=== PATIENT | male | born 1980 | race Caucasian/White ===

== ENCOUNTER 2017-08-02 08:47 | Emergency (ER) | payer OTHER, SELFPAY ==
[2017-08-02 09:06] VITALS: BP 141/80; PULSE 90; RESP 18; TEMP 37.4; O2SAT 97; BMI 25.0
--- NOTE | 2017-08-02 09:19 | HMH.EDUTC ---
[facility] [place]: Influenza A Disposition: Home, Self-Care Condition on Discharge: Good Instructions: DI for Influenza -- Adult Additional Instructions: * Lots of rest * Increase fluids, water, gatorade, powerade, pedialyte if /toddler/child * Monitor Temp. Tylenol every 4 hours as needed no more then 5 times a day or 4000mg in 24 hours and/or ibuprofen every 6 hours as needed no more then 3200mg in 24 hours (as long as your primary care doctor has told you that it is ok to take both) for fever/aches/pain. ER if fever no less than 101 despite tylenol and Ibuprofen * You (or your child) are contagious until no fever, aches, chills x 24 hours without medication for symptoms. * Discussed tamiflu, patient opted out of tamiflu because otherwise healthy Follow up IMMEDIATELY for new or worsening symptoms, improvement followed by suddenly feeling worse OR no noticeable improvement over the next 48-72 hours. 911 for difficulty breathing Referrals: Evan Thomas MD [Primary Care Provider] - Forms: Work/School Release Time of Disposition: 09:33 Medical Decision Making Vital Signs: 08/02/17 09:06 Temperature 99.3 F Temperature Source Temporal Artery Scan Pulse Rate [Right] 90 Respiratory Rate 18 Blood Pressure [Right Arm] 141/80 Blood Pressure Mean [Right Arm] 100 Blood Pressure Source [Right Arm] Automatic Cuff Blood Pressure Position [Right Arm] Sitting 02 Sat by Pulse Oximetry 97 Oxygen Delivery Method Room Air - Lab Data Lab Results 08/02/17 09:18: Influenza Type A Ag Positive A, Influenza Type B Ag Negative - Ankur Inquiry Pt receiving controlled substance: No [facility] [place] - General Chief complaint: Fever Stated complaint: Fever Cough Body Aches Time Seen by Provider: 08/02/17 09:10 Mode of Arrival: Ambulatory Source of Information: Patient Limitations: No Limitations Description of Symptoms (Recalled from Triage Doc. by RN): fever, cough 3 days HEENT Symptoms (Recalled from RN notes): Yes Resp Symptoms (Recalled from RN notes): No Skin Symptoms (Recalled from RN notes): No MS Symptoms (Recalled from RN notes): No Functional Status (Recalled from RN notes): N - History of Present Illness Provider Complaint: c/o subjective fever, bodyaches, chills, nonprod cough, nasal drainage since day before yesterday. No known sick contacts. Has not had flu vaccine. Nyquil last night didn't help. Denies SOA, wheezing. - Related Data Allergies Allergy/AdvReac Type Severity Reaction Status Date / Time No Known Allergies Allergy Unverified 07/17/17 14:50 - Worker's Comp Is this a Worker's Comp case?: No [facility] History I have reviewed the patient's past medical history: Yes (rvwd w/ pt) - *Social History Smoking Status: Current every day smoker Tobacco Type: cigarettes Alcohol Intake: never - Psychiatric History Expresses thoughts of harming self/others: None Suicide Plan Description: No Plan ROS Obtained: Yes Systems reviewed as appropropriate & no additional complaint - Constitutional Reports body ache(s), Reports chills, Reports fatigue - Eyes Denies discharge - ENT Reports nasal congestion, Reports nasal discharge, Reports post nasal drip, Reports sore throat (primarily in morning), Denies ear discharge, Denies ear pain - Cardiovascular Denies chest pain - Respiratory Reports cough, Denies shortness of breath, Denies wheezing - Gastrointestinal Denies change in stools, Denies vomiting - Musculoskeletal Reports joint pain - Neurologic Reports headache(s) (mild, intermittent), Denies dizziness Physical Exam - General General appearance: alert, in no apparent distress - Eye Eye exam: Present: normal appearance - ENT ENT exam: Present: normal oropharynx, mucous membranes moist, TM's normal bilaterally, normal external ear exam, other (clear nasal drainage) - Neck Neck exam: Absent: lymphadenopathy - Chest Chest inspection
--- NOTE | 2017-08-02 09:23 | ED_ITS ---
[facility] [place] Impression: Influenza A Disposition: Home, Self-Care Condition on Discharge: Good Instructions: DI for Influenza -- Adult Additional Instructions: * Lots of rest * Increase fluids, water, gatorade, powerade, pedialyte if /toddler/child * Monitor Temp. Tylenol every 4 hours as needed no more then 5 times a day or 4000mg in 24 hours and/or ibuprofen every 6 hours as needed no more then 3200mg in 24 hours (as long as your primary care doctor has told you that it is ok to take both) for fever/aches/pain. ER if fever no less than 101 despite tylenol and Ibuprofen * You (or your child) are contagious until no fever, aches, chills x 24 hours without medication for symptoms. * Discussed tamiflu, patient opted out of tamiflu because otherwise healthy Follow up IMMEDIATELY for new or worsening symptoms, improvement followed by suddenly feeling worse OR no noticeable improvement over the next 48-72 hours. 911 for difficulty breathing Referrals: Evan Thomas MD [Primary Care Provider] - Forms: Work/School Release Time of Disposition: 09:33 Medical Decision Making Vital Signs: 08/02/17 09:06 Temperature 99.3 F Temperature Source Temporal Artery Scan Pulse Rate [Right] 90 Respiratory Rate 18 Blood Pressure [Right Arm] 141/80 Blood Pressure Mean [Right Arm] 100 Blood Pressure Source [Right Arm] Automatic Cuff Blood Pressure Position [Right Arm] Sitting 02 Sat by Pulse Oximetry 97 Oxygen Delivery Method Room Air - Lab Data Lab Results 08/02/17 09:18: Influenza Type A Ag Positive A, Influenza Type B Ag Negative - Ankur Inquiry Pt receiving controlled substance: No [facility] [place] - General Chief complaint: Fever Stated complaint: Fever Cough Body Aches Time Seen by Provider: 08/02/17 09:10 Mode of Arrival: Ambulatory Source of Information: Patient Limitations: No Limitations Description of Symptoms (Recalled from Triage Doc. by RN): fever, cough 3 days HEENT Symptoms (Recalled from RN notes): Yes Resp Symptoms (Recalled from RN notes): No Skin Symptoms (Recalled from RN notes): No MS Symptoms (Recalled from RN notes): No Functional Status (Recalled from RN notes): N - History of Present Illness Provider Complaint: c/o subjective fever, bodyaches, chills, nonprod cough, nasal drainage since day before yesterday. No known sick contacts. Has not had flu vaccine. Nyquil last night didn't help. Denies SOA, wheezing. - Related Data Allergies Allergy/AdvReac Type Severity Reaction Status Date / Time No Known Allergies Allergy Unverified 07/17/17 14:50 - Worker's Comp Is this a Worker's Comp case?: No [facility] History I have reviewed the patient's past medical history: Yes (rvwd w/ pt) - *Social History Smoking Status: Current every day smoker Tobacco Type: cigarettes Alcohol Intake: never - Psychiatric History Expresses thoughts of harming self/others: None Suicide Plan Description: No Plan ROS Obtained: Yes Systems reviewed as appropropriate & no additional complaint - Constitutional Reports body ache(s), Reports chills, Reports fatigue - Eyes Denies discharge - ENT Reports nasal congestion, Reports nasal discharge, Reports post nasal drip, Reports sore throat (primarily in morning), Denies ear discharge, Denies ear pain - Cardiovascular Denies chest pain - Respiratory Reports coug
[2017-08-02 09:25] LABS: UTC Influenza A Antigen Positive (Negative); UTC Influenza B Antigen Negative (Negative)
== END 2017-08-02 09:44 | disposition home or self-care (01) ==
PROVIDERS: Emergency Provider Nurse Practitioner Family; Family Provider Family Medicine; PCP Family Medicine
DX: J10.1 Influenza due to other identified influenza virus with other respiratory manifestations (principal)
CPT/HCPCS: 87276; 87804; 99202

== ENCOUNTER → 2017-12-10 10:52 | Outpatient (CLI) | payer OTHER, SELFPAY ==
--- NOTE | 2017-12-10 11:02 | US_ITS ---
US abdomen limited: HISTORY: Right upper quadrant pain ITS.REASON: GALLSTONES,ABD PAIN ORDERING PHYSICIAN: Latoya Hicks PATIENT AGE: 37 years COMPARISON: 12/09/2017 FINDINGS: PANCREAS: Unremarkable. No obvious mass or abnormal fluid collection. No ductal dilatation LIVER: No focal liver lesions demonstrated. Homogeneous echogenicity. No intrahepatic biliary ductal dilatation evident RIGHT KIDNEY: Unremarkable. Normal size and echogenicity. No hydronephrosis GALLBLADDER: Stones are present in the gallbladder. There is a small area of increased echogenicity in the region of the neck of the gallbladder with posterior acoustical shadowing suggesting a stone within the neck of the gallbladder. No pericholecystic fluid, biliary dilatation, or gallbladder wall thickening evident. Small amount sludge is present in the gallbladder. IMPRESSION: Cholelithiasis with suggestion of a stone in the neck of the gallbladder.
== END ==
PROVIDERS: PCP Family Medicine; Visit Provider Nurse Practitioner Family
DX: R10.11 Right upper quadrant pain (principal)
CPT/HCPCS: 76705

== ENCOUNTER → 2017-12-14 11:46 | Outpatient (CLI) | payer OTHER, SELFPAY ==
[2017-12-14 12:07] LABS: Basophils # 0.1 K/mm3 (0-0.2); Basophils % 0.4 % (0.1-2.0); Eosinophils # 0.1 K/mm3 (0.0-0.4); Hemoglobin 17.2 g/dL (14.1-18.0); Lymphocytes # 2.1 K/mm3 (0.7-4.5); Lymphocytes % 18.9 K/mm3 (10-50); Mean Corpuscular HGB Conc 35.2 g/dL (31.8-35.4); Mean Corpuscular Hemoglobin 32.3 pg (27.0-31.2); Mean Corpuscular Volume 91.8 fl (80-94); Mean Platelet Volume 9.2 fl (7.4-10.4); Monocytes # 0.7 K/mm3 (0.1-1.0); Monocytes % 6.3 % (1.7-9.3); Neutrophils % 73.3 % (37.0-80.0); Platelet Count 189 K/mm3 (142-424); Red Blood Count 5.33 M/mm3 (4.60-6.20); Red Cell Distribution Width 12.4 % (11.5-17.5); White Blood Count 10.9 K/mm3 (4.8-10.8)
[2017-12-14 13:27] LABS: Alanine Aminotransferase 21 U/L (12-78); Albumin Level 4.2 gm/dL (3.4-5.0); Albumin/Globulin Ratio 1.3 (1.1-1.8); Alkaline Phosphatase 125 U/L (46-116); Anion Gap 12.1 mEq/L (5-15); Aspartate Amino Transferase 18 U/L (15-37); Blood Urea Nitrogen 8 mg/dL (7-18); Calcium 9.4 mg/dL (8.5-10.1); Carbon Dioxide 31 mmol/L (21.0-32.0); Chloride 101 mmol/L (98-107); Creatinine,Serum 1.01 mg/dL (0.70-1.30); Estimated Glomerular Filt Rate 83 ml/min (>60); GFR (African American) 101 ML/MIN (>60); Globulin 3.2 gm/dl (1.3-3.2); Glucose 98 mg/dL (74-106); Potassium 4.1 mmoL/L (3.5-5.1); Sodium 140 mmol/L (136-145); Total Protein,Serum 7.4 gm/dL (6.4-8.2)
== END ==
PROVIDERS: Visit Provider Surgery
DX: Z01.818 Encounter for other preprocedural examination (principal); K80.20 Calculus of gallbladder without cholecystitis without obstruction
CPT/HCPCS: 36415; 80053; 85025